=== PATIENT | male | born 1970 | race African-American/Black ===

== ENCOUNTER 2024-01-09 13:56 | Inpatient (IN) | payer OTHER ==
[2024-01-09 14:08] VITALS: BMI 32.1
[2024-01-09 15:53] LABS: POTASSIUM 4.2 mmol/L (3.5-5.1)
[2024-01-09 15:55] LABS: ALBUMIN 3.2 g/dl (3.4-5.0); CALCIUM 8.9 mg/dL (8.5-10.1)
[2024-01-09 15:56] LABS: BLOOD UREA NITROGEN 18.8 mg/dL (7-18)
[2024-01-09 15:59] LABS: CREATININE 1.6 mg/dL (0.55-1.3)
[2024-01-09 16:00] LABS: BILIRUBIN,TOTAL 0.5 mg/dL (0.2-1); HEMATOCRIT 36.1 % (35.4-49); HEMOGLOBIN 12.6 GM/dL (11.7-16.9); MCH 29.8 pg (25.7-33.7); MCHC 34.9 g/dl (32.0-35.9); MEAN CELL VOLUME 85.4 fl (80-96); MEAN PLT VOLUME 8.4 fl (7.5-11.1); PLATELET COUNT 227 10^3/uL (134-434); RBC 4.22 M/mm3 (4.00-5.60); RDW 12.3 % (11.9-15.9); TOT PROT 6.9 g/dl (6.4-8.2); WHITE BLOOD COUNT 8.5 K/mm3 (4.0-10.0)
[2024-01-09] MEDS: CLINDAMYCIN 600MG PREMIX IVPB 600 MG/50 ML BAG IVPB ONE (18:00)
[2024-01-09] MEDS ORDERED: CLINDAMYCIN 600MG PREMIX IVPB 600 MG/50 ML BAG IVPB ONE (18:06)
[2024-01-09] MEDS: INSULIN ASPART SLIDING SCALE (NOVOLOG) 1 VIAL SQ SCH (21:21)
[2024-01-09] MEDS: HEPARIN NA (PORCINE) 5,000 UNITS/ML 1ML VIAL SQ SCH (21:22)
[2024-01-09] MEDS: MELATONIN 5 MG TABLETS PO ONE (21:22)
[2024-01-09] MEDS: ATORVASTATIN CA 10 MG TABLET (FP) PO SCH (21:22)
[2024-01-09 23:10] LABS: EPI CELLS 2 /uL (0-25.1); HYALINE CASTS 0 /uL (0-3.1); URINE APPEARANCE CLEAR; URINE BACTERIA 5 /uL (0-1359); URINE BILIRUBIN NEGATIVE (NEGATIVE); URINE COLOR YELLOW; URINE GLUCOSE (UA) 3+ (NEGATIVE); URINE KETONE NEGATIVE (NEGATIVE); URINE LEUK ESTERASE NEGATIVE (NEGATIVE); URINE NITRITE NEGATIVE (NEGATIVE); URINE PROTEIN 1+ (NEGATIVE); URINE RBC 39 /uL (0-23.9); URINE WBC 2 /uL (0-25.8)
[2024-01-10] MEDS ORDERED: PIPERACILLIN/TAZOB 3.375 GM 3.375 GM in DEXTROSE 5%-WATER - 50 ML IVPB SCH (02:00)
[2024-01-10] MEDS: PIPERACILLIN/TAZOB 3.375 GM 3.375 GM in DEXTROSE 5%-WATER - 50 ML IVPB SCH ×2 (03:48→17:20)
[2024-01-10 08:07] LABS: BASO % 0.6 % (0-2.0); EOS % 3.3 % (0-4.5); HEMATOCRIT 35.5 % (35.4-49); HEMOGLOBIN 12.3 GM/dL (11.7-16.9); LYMPH % 34.4 % (8-40); MCH 29.5 pg (25.7-33.7); MCHC 34.7 g/dl (32.0-35.9); MEAN CELL VOLUME 85.1 fl (80-96); MONO % 8.8 % (3.8-10.2); NEUT % 52.9 % (42.8-82.8); PLATELET COUNT 201 10^3/uL (134-434); RBC 4.17 M/mm3 (4.00-5.60); RDW 12.5 % (11.9-15.9); WHITE BLOOD COUNT 6.7 K/mm3 (4.0-10.0)
[2024-01-10 08:24] LABS: POTASSIUM 3.9 mmol/L (3.5-5.1)
[2024-01-10 08:29] LABS: CHOLESTEROL 184 mg/dL (50-200)
[2024-01-10 08:30] LABS: CALCIUM 8.6 mg/dL (8.5-10.1); LDL CHOLESTEROL (ONLY SJRH) 119 mg/dL (5-100)
[2024-01-10 08:31] LABS: BLOOD UREA NITROGEN 18.5 mg/dL (7-18); MAGNESIUM 1.7 mg/dL (1.8-2.4)
[2024-01-10 08:32] LABS: HDL CHOLESTEROL 46 mg/dL (40-60)
[2024-01-10 08:34] LABS: CREATININE 1.4 mg/dL (0.55-1.3); PHOSPHOROUS 3.2 mg/dL (2.5-4.9)
[2024-01-10 08:35] LABS: TOT PROT 6.3 g/dl (6.4-8.2)
[2024-01-10 08:36] LABS: BILIRUBIN,TOTAL 0.9 mg/dL (0.2-1)
[2024-01-10] MEDS: amLODIPine BESYLATE 5 MG TABLET (FP) PO SCH (10:32)
[2024-01-10] MEDS: DOXYCYCLINE HYCLATE 100 MG CAPSULE PO SCH (10:32)
[2024-01-10] MEDS: HYDROCHLOROTHIAZIDE 25 MG TABLET (FP) PO SCH (10:32)
[2024-01-10] MEDS: MAGNESIUM SULF 50% (8.12 MEQ/2 ML-1 GM VIAL) IVPB ONE (10:36)
[2024-01-10] MEDS: SODIUM CHLORIDE 0.45% 1,000 ML IV SCH (11:53)
[2024-01-10] MEDS ORDERED: ALBUTEROL SO4 HFA INHALER IH PRN (13:47)
[2024-01-10] MEDS: amLODIPine BESYLATE 5 MG TABLET (FP) PO ONE (13:50)
[2024-01-10] MEDS ORDERED: ATORVASTATIN CA 10 MG TABLET (FP) PO SCH (15:45)
[2024-01-10] MEDS: BUDESONIDE/FORMETEROL FUMARATE 160/4.5 mcg INHALER IH SCH (16:41)
[2024-01-10] MEDS: ATORVASTATIN CA 10 MG TABLET (FP) PO SCH (21:25)
[2024-01-10] MEDS: KETOCONAZOLE 2% CREAM - 60GM TUBE TP SCH (21:26)
[2024-01-10] MEDS: INSULIN ASPART SLIDING SCALE (NOVOLOG) 1 VIAL SQ SCH (21:54)
[2024-01-10] MEDS: MELATONIN 5 MG TABLETS PO SCH (21:54)
[2024-01-11 07:47] LABS: HEMATOCRIT 38.1 % (35.4-49); HEMOGLOBIN 13.5 GM/dL (11.7-16.9); MCH 29.9 pg (25.7-33.7); MCHC 35.3 g/dl (32.0-35.9); MEAN CELL VOLUME 84.7 fl (80-96); MEAN PLT VOLUME 8.1 fl (7.5-11.1); PLATELET COUNT 229 10^3/uL (134-434); RDW 12.7 % (11.9-15.9); WHITE BLOOD COUNT 6.7 K/mm3 (4.0-10.0)
[2024-01-11 07:48] LABS: INR 0.99 (0.83-1.09); PROTHROMBIN TIME (PATIENT) 11.2 SEC (9.7-13.0)
[2024-01-11 08:08] LABS: POTASSIUM 3.9 mmol/L (3.5-5.1)
[2024-01-11 08:10] LABS: CALCIUM 8.6 mg/dL (8.5-10.1)
[2024-01-11 08:11] LABS: ALBUMIN 3.2 g/dl (3.4-5.0); BLOOD UREA NITROGEN 15.1 mg/dL (7-18)
[2024-01-11 08:14] LABS: CREATININE 1.5 mg/dL (0.55-1.3)
[2024-01-11 08:16] LABS: BILIRUBIN,TOTAL 0.8 mg/dL (0.2-1); TOT PROT 6.9 g/dl (6.4-8.2)
[2024-01-11] MEDS: amLODIPine BESYLATE 10 MG TABLET (FP) PO SCH (09:51)
[2024-01-11 16:12] LABS: INR 1.06 (0.83-1.09)
[2024-01-11] MEDS: ACETAMINOPHEN 325 MG TABLET (FP) PO PRN (21:27)
[2024-01-12] MEDS ORDERED: GENTAMICIN SO4 80 MG/2 ML VIAL ONE (07:21)
[2024-01-12] MEDS ORDERED: BUPIVACAINE HCL/PF 0.5% (5MG/ML) 10 ML VIAL ONE (07:21)
[2024-01-12] MEDS ORDERED: LIDOCAINE HCL 1%, 10 MG/ML (20ML VIAL) ONE (07:21)
[2024-01-12] MEDS ORDERED: FENTANYL CITRATE/PF 50 MCG/ML VIAL ONE (07:24)
[2024-01-12] MEDS ORDERED: MIDAZOLAM HCL 2 MG/2 ML SINGLE DOSE VIAL ONE (07:24)
[2024-01-12] MEDS ORDERED: PROPOFOL 20 ML ONE ×2 (07:25→07:55)
[2024-01-12] MEDS: LIDOCAINE HCL 1%, 10 MG/ML (20ML VIAL) INF ONE (07:40)
[2024-01-12] MEDS: BUPIVACAINE HCL/PF 0.5% (5 MG/ML) 30 ML VIAL IJ ONE (07:40)
[2024-01-12] MEDS: GENTAMICIN 80MG PREMIX BAG IVPB ONE (07:45)
[2024-01-12] MEDS ORDERED: ONDANSETRON 4 MG/2 ML VIAL ONE (07:49)
[2024-01-12] MEDS ORDERED: ONDANSETRON 4 MG/2 ML VIAL IVPUSH PRN ×2 (08:20→08:31)
[2024-01-12] MEDS ORDERED: LACTATED RINGERS SOLUTION 1,000 ML IV SCH ×2 (08:30→08:31)
[2024-01-12] MEDS ORDERED: ALBUTEROL SO4 HFA INHALER IH PRN (08:31)
[2024-01-12] MEDS ORDERED: ACETAMINOPHEN 325 MG TABLET (FP) PO PRN (08:31)
[2024-01-12 10:11] VITALS: RESP 18
[2024-01-12] MEDS: amLODIPine BESYLATE 10 MG TABLET (FP) PO SCH (10:15)
[2024-01-12] MEDS: HYDROCHLOROTHIAZIDE 25 MG TABLET (FP) PO SCH (10:15)
[2024-01-12] MEDS: DOXYCYCLINE HYCLATE 100 MG CAPSULE PO SCH (10:15)
[2024-01-12] MEDS: PIPERACILLIN/TAZOB 3.375 GM 3.375 GM in DEXTROSE 5%-WATER - 50 ML IVPB SCH (10:15)
[2024-01-12] MEDS: BUDESONIDE/FORMETEROL FUMARATE 160/4.5 mcg INHALER IH SCH (10:16)
[2024-01-12] MEDS: KETOCONAZOLE 2% CREAM - 60GM TUBE TP SCH (10:17)
[2024-01-12 10:48] LABS: HEMATOCRIT 37.3 % (35.4-49); MCH 29.8 pg (25.7-33.7); MCHC 34.8 g/dl (32.0-35.9); MEAN CELL VOLUME 85.5 fl (80-96); MEAN PLT VOLUME 8.2 fl (7.5-11.1); PLATELET COUNT 195 10^3/uL (134-434); RBC 4.36 M/mm3 (4.00-5.60); RDW 12.7 % (11.9-15.9); WHITE BLOOD COUNT 6.1 K/mm3 (4.0-10.0)
[2024-01-12 11:08] LABS: POTASSIUM 4.4 mmol/L (3.5-5.1)
[2024-01-12 11:13] LABS: BLOOD UREA NITROGEN 18.2 mg/dL (7-18); CALCIUM 8.5 mg/dL (8.5-10.1)
[2024-01-12 11:15] LABS: CREATININE 1.5 mg/dL (0.55-1.3)
[2024-01-12 11:16] LABS: BILIRUBIN,TOTAL 0.9 mg/dL (0.2-1); TOT PROT 6.9 g/dl (6.4-8.2)
[2024-01-12] MEDS: INSULIN ASPART SLIDING SCALE (NOVOLOG) 1 VIAL SQ SCH (11:26)
[2024-01-12] MEDS: ACETAMINOPHEN 325 MG TABLET (FP) PO PRN (17:55)
[2024-01-12] MEDS: ATORVASTATIN CA 10 MG TABLET (FP) PO SCH (21:18)
[2024-01-12] MEDS: MELATONIN 5 MG TABLETS PO SCH (21:18)
[2024-01-13 08:23] LABS: HEMATOCRIT 36.9 % (35.4-49); HEMOGLOBIN 12.8 GM/dL (11.7-16.9); MCH 29.6 pg (25.7-33.7); MCHC 34.7 g/dl (32.0-35.9); MEAN CELL VOLUME 85.3 fl (80-96); MEAN PLT VOLUME 8.4 fl (7.5-11.1); PLATELET COUNT 193 10^3/uL (134-434); RBC 4.32 M/mm3 (4.00-5.60); RDW 12.5 % (11.9-15.9); WHITE BLOOD COUNT 5.9 K/mm3 (4.0-10.0)
[2024-01-13 08:45] LABS: BLOOD UREA NITROGEN 19.5 mg/dL (7-18); CALCIUM 8.6 mg/dL (8.5-10.1)
[2024-01-13 08:48] LABS: CREATININE 1.4 mg/dL (0.55-1.3)
[2024-01-13 08:50] LABS: BILIRUBIN,TOTAL 0.8 mg/dL (0.2-1)
[2024-01-13] MEDS: oxyCODONE HCL 5 MG TABLET PO PRN (09:40)
[2024-01-13] MEDS: LOSARTAN POTASSIUM 50 MG TABLET PO SCH (11:24)
[2024-01-13] MEDS: glipiZIDE 5 MG TABLET (FP) PO SCH (11:24)
[2024-01-13] MEDS: EMPAGLIFLOZIN (JARDIANCE) 10 MG TABLET PO SCH (11:25)
[2024-01-13] MEDS: metFORMIN HCL 500 MG TABLET (FP) PO SCH (16:24)
[2024-01-14 09:07] LABS: BASO % 0.4 % (0-2.0); HEMATOCRIT 37.9 % (35.4-49); LYMPH % 20.8 % (8-40); MCH 29.6 pg (25.7-33.7); MCHC 34.4 g/dl (32.0-35.9); MEAN CELL VOLUME 85.9 fl (80-96); MEAN PLT VOLUME 8.3 fl (7.5-11.1); MONO % 13.3 % (3.8-10.2); NEUT % 62.5 % (42.8-82.8); PLATELET COUNT 192 10^3/uL (134-434); RBC 4.41 M/mm3 (4.00-5.60); RDW 12.4 % (11.9-15.9); WHITE BLOOD COUNT 6.1 K/mm3 (4.0-10.0)
[2024-01-14 09:24] LABS: POTASSIUM 3.8 mmol/L (3.5-5.1)
[2024-01-14 09:30] LABS: CALCIUM 8.6 mg/dL (8.5-10.1)
[2024-01-14 09:31] LABS: BLOOD UREA NITROGEN 23.2 mg/dL (7-18)
[2024-01-14 09:32] LABS: ALBUMIN 3.1 g/dl (3.4-5.0)
[2024-01-14 09:35] LABS: CREATININE 1.5 mg/dL (0.55-1.3)
[2024-01-14 09:36] LABS: BILIRUBIN,TOTAL 0.9 mg/dL (0.2-1); TOT PROT 7.3 g/dl (6.4-8.2)
[2024-01-14 13:16] VITALS: BP 128/75; PULSE 79; TEMP 98.3
== END 2024-01-14 13:28 | disposition home or self-care (01) | DRG 420 ==
LOC: JER 13:56 → JERBED 17:04 → J6S 20:35
PROVIDERS: ADMIT Internal Medicine; ATTEND Internal Medicine
PROC: 0H9LXZX Drainage of Left Lower Leg Skin, External Approach, Diagnostic (ICD-10-PCS; principal; 2024-01-12 07:30)
PROC: 0HCNXZZ Extirpation of Matter from Left Foot Skin, External Approach (ICD-10-PCS; 2024-01-12 07:30)
DX: E11.621 Type 2 diabetes mellitus with foot ulcer (principal); E11.65 Type 2 diabetes mellitus with hyperglycemia; N17.9 Acute kidney failure, unspecified; E78.5 Hyperlipidemia, unspecified; I25.10 Atherosclerotic heart disease of native coronary artery without angina pectoris; L02.612 Cutaneous abscess of left foot; I16.0 Hypertensive urgency; L08.9 Local infection of the skin and subcutaneous tissue, unspecified; N18.9 Chronic kidney disease, unspecified; S90.852A Superficial foreign body, left foot, initial encounter; X58.XXXA Exposure to other specified factors, initial encounter; Y93.9 Activity, unspecified; Y92.89 Other specified places as the place of occurrence of the external cause; Y99.9 Unspecified external cause status
CPT/HCPCS: 36415; 71045-TC-FY; 73610-TC-LT-FY; 73630-TC-LT; 73718-TC-LT; 76000-TC-FY; 76775-TC; 80048; 80053; 80061; 81003; 82570; 82962; 83036; 83735; 84100; 84156; 84300; 84484; 85025; 85027; 85610; 85651; 86140; 87040; 87070; 87081; 87186; 87205; 88300-TC; 93005; 93010; 94760; 97116-GP; 97161-GP; 99285-25; J1644